=== PATIENT | male | born 1955 | race Caucasian/White ===

== ENCOUNTER 2018-04-05 19:00 | Inpatient (IN) | payer OTHER ==
[~2018-04-05] VITALS: Ht 180.3 cm; Wt 68.5 kg
[~2018-04-05 19:00] MED LIST: ASPI-1182 PO; BUPR75 PO; CLON2 PO; HYDR25TA PO; LISI-661 PO; LORA10TA7 PO; MOME17N NASAL; RISP2TAB76 PO; SIMV5TAB2 PO; VITAD1000 PO
[2018-04-05] MEDS ORDERED: PIPERACILLIN SODIUM/TAZOBACTAM 4.5 GM in DEXTROSE 5%-WATER 100 ML IV ONE (21:45)
[2018-04-05] MEDS ORDERED: VANCOMYCIN HCL 1 GM/D5% WATER 200 ML IV ONE (21:45)
[2018-04-05 22:19] LABS: CALCIUM, TOTAL 8.9 mg/dL (8.8-10.5); CREATININE 3.5 mg/dL (0.60-1.30)
[2018-04-05 22:20] LABS: BASOPHILS % (AUTO) 0.1 % (0.0-2.0); EOSINOPHILS % (AUTO) 0.1 % (1.0-6.0); HEMATOCRIT 39.7 % (41-53); HEMOGLOBIN 13.6 g/dL (13.5-17.5); LYMPHOCYTES # (AUTO) 0.3 K/uL (1.0-4.8); LYMPHOCYTES % (AUTO) 2.1 % (22.0-44.0); MEAN CORPUSCULAR HEMOGLOBIN 31.5 pg (26.0-34.0); MEAN CORPUSCULAR HGB CONC 34.2 G/dL (31.0-37.0); MEAN CORPUSCULAR VOLUME 92 fL (80-100); MONOCYTES # (AUTO) 0.8 K/uL (0.1-1.0); MONOCYTES % (AUTO) 5.5 % (2.0-9.0); NEUTROPHILS # (AUTO) 14.1 K/uL (1.8-7.7); PLATELET COUNT (AUTO) 192 K/uL (150-450); RED BLOOD CELL COUNT(AUTO) 4.32 MIL/uL (4.50-5.90); RED CELL DISTRIBUTION WIDTH 14.1 % (11.5-14.5)
[2018-04-05 22:22] LABS: NEUTROPHILS % (AUTO) 92.2 % (40.0-70.0)
[2018-04-05 22:25] LABS: ALBUMIN 3.2 g/dL (3.4-5.0); TOTAL PROTEIN, SERUM 9.2 g/dL (6.4-8.2)
[2018-04-05 22:28] LABS: LACTIC ACID 1.8 mmol/L (0.4-2.0)
[2018-04-05] MEDS ORDERED: 0.9% SODIUM CHLORIDE 10 ML SYRINGE IVP PRN ×2 (23:00→23:45)
[2018-04-05] MEDS ORDERED: ACETAMINOPHEN 325 MG TABLET PO PRN (23:00)
[2018-04-05] MEDS ORDERED: ONDANSETRON HCL 4 MG/2 ML VIAL IVP PRN ×2 (23:00→23:45)
[2018-04-05] MEDS ORDERED: HYDROCODONE/ACETAMINOPHEN 5-325 MG TABLET PO PRN (23:45)
[2018-04-05] MEDS ORDERED: ZOLPIDEM TARTRATE 5 MG TABLET PO PRN (23:45)
[2018-04-05] MEDS ORDERED: VANCOMYCIN HCL 1 GM/D5% WATER 200 ML IV PRN (23:45)
[2018-04-06] VITALS (8 sets, daily range): BP systolic 78–118; BP diastolic 41–76
[2018-04-06] MEDS ORDERED: RisperiDONE 3 MG TABLET PO SCH
[2018-04-06] MEDS ORDERED: SODIUM CHLORIDE 0.9% 250 ML IV ONE (02:52)
[2018-04-06] MEDS ORDERED: VANCOMYCIN HCL 500 MG in DEXTROSE 5%-WATER 100 ML IV ONE (03:00)
[2018-04-06] MEDS: PIPERACILLIN SODIUM/TAZOBACTAM 2.25 GM in DEXTROSE 5%-WATER 50 ML IV SCH ×4 (04:22→22:01)
[2018-04-06] MEDS ORDERED: PNEUMOCOCCAL VACCINE POLYVALENT 0.5 ML VIAL [PPSV23] IM ONE (05:45)
[2018-04-06 07:35] LABS: BASOPHILS % (AUTO) 0.2 % (0.0-2.0); EOSINOPHILS % (AUTO) 0.1 % (1.0-6.0); HEMATOCRIT 31.6 % (41-53); HEMOGLOBIN 11.1 g/dL (13.5-17.5); LYMPHOCYTES # (AUTO) 0.4 K/uL (1.0-4.8); LYMPHOCYTES % (AUTO) 3.2 % (22.0-44.0); MEAN CORPUSCULAR HEMOGLOBIN 31.9 pg (26.0-34.0); MEAN CORPUSCULAR HGB CONC 35.1 G/dL (31.0-37.0); MEAN CORPUSCULAR VOLUME 91 fL (80-100); MONOCYTES % (AUTO) 8.9 % (2.0-9.0); NEUTROPHILS # (AUTO) 9.6 K/uL (1.8-7.7); PLATELET COUNT (AUTO) 149 K/uL (150-450); RED BLOOD CELL COUNT(AUTO) 3.47 MIL/uL (4.50-5.90); RED CELL DISTRIBUTION WIDTH 13.9 % (11.5-14.5)
[2018-04-06 07:41] LABS: NEUTROPHILS % (AUTO) 87.6 % (40.0-70.0)
[2018-04-06 07:42] LABS: CALCIUM, TOTAL 7.5 mg/dL (8.8-10.5); CREATININE 3.53 mg/dL (0.60-1.30); MAGNESIUM 2.2 mg/dL (1.80-2.40); POTASSIUM 3.8 mmol/L (3.5-5.1)
[2018-04-06] MEDS ORDERED: HYDROCHLOROTHIAZIDE 25 MG TABLET PO SCH (09:00)
[2018-04-06] MEDS ORDERED: PANTOPRAZOLE SODIUM 40 MG DR TABLET PO SCH (09:00)
[2018-04-06] MEDS ORDERED: LISINOPRIL 10 MG TABLET PO SCH (09:00)
[2018-04-06] MEDS ORDERED: ClonazePAM 1 MG TABLET PO SCH (09:00)
[2018-04-06] MEDS ORDERED: LORATADINE 10 MG TABLET PO SCH (09:00)
[2018-04-06] MEDS: PANTOPRAZOLE SODIUM 40 MG/VIAL IVP SCH (09:47)
[2018-04-06] MEDS: MOMETASONE FUROATE 50 MCG/SPRAY 17 GM NASAL SPRAY NASAL SCH (09:47)
[2018-04-06] MEDS: BuPROPion HCL 75 MG TABLET PO SCH ×2 (09:48→20:01)
[2018-04-06] MEDS: ASPIRIN 81 MG EC TABLET PO SCH (09:48)
[2018-04-06] MEDS: DOCUSATE SODIUM 100 MG CAPSULE PO SCH ×2 (09:48→20:01)
[2018-04-06] MEDS ORDERED: SODIUM CHLORIDE 0.9% 1,000 ML IV ONE (10:30)
[2018-04-06 11:14] LABS: CREATININE,URINE RANDOM 124.3 mg/dL (30.0-125.0); PROTEIN,URINE RANDOM 144 mg/dL (0-11.9); SODIUM,URINE RANDOM < 5 mmol/l (20-110)
[2018-04-06 11:20] LABS: CREATINE KINASE, TOTAL 43 U/L (39-308)
[2018-04-06 11:24] LABS: LACTIC ACID 1.8 mmol/L (0.4-2.0)
[2018-04-06] MEDS: RINGERS SOLUTION,LACTATED 1,000 ML IV SCH ×2 (12:26→20:01)
[2018-04-06] MEDS: ClonazePAM 0.5 MG TABLET PO SCH (20:03)
[2018-04-07 02:02] LABS: APPEARANCE,URINE CLOUDY (CLEAR); BILIRUBIN,URINE NEGATIVE (NEGATIVE); GLUCOSE, URINE (UA) NEGATIVE (NEGATIVE); KETONES,URINE NEGATIVE (NEGATIVE); OCCULT BLOOD,URINE MODERATE (NEGATIVE); PROTEIN,URINE SEE CONFIRM (NEGATIVE)
[2018-04-07 02:03] LABS: LEUKOCYTE ESTERASE ,URINE TRACE (NEGATIVE); NITRATE,URINE NEGATIVE (NEGATIVE)
[2018-04-07 02:05] LABS: AMPHET/METH SCREEN,URINE POSITIVE (NEGATIVE); BARBITURATE SCREEN, URINE NEGATIVE (NEGATIVE); BENZODIAZEPINES SCREEN,URINE POSITIVE (NEGATIVE); CANNABINOID SCREEN,URINE NEGATIVE (NEGATIVE); COCAINE SCREEN,URINE NEGATIVE (NEGATIVE); METHADONE SCREEN, URINE NEGATIVE (NEGATIVE); OPIATE SCREEN,URINE POSITIVE (NEGATIVE)
[2018-04-07 02:06] LABS: PHENCYCLIDINE SCREEN,URINE NEGATIVE (NEGATIVE)
[2018-04-07 02:19] LABS: BACTERIA,URINE Rare /HPF (None Seen); SULFOSALICYLIC ACID,URINE 1+ (Negative); URIC ACID CRYSTALS,URINE Few /LPF (None Seen)
[2018-04-07] MEDS: RINGERS SOLUTION,LACTATED 1,000 ML IV SCH ×3 (03:13→22:18)
[2018-04-07] MEDS: PIPERACILLIN SODIUM/TAZOBACTAM 2.25 GM in DEXTROSE 5%-WATER 50 ML IV SCH ×4 (03:14→22:18)
[2018-04-07 04:46] VITALS: BP 110/64
[2018-04-07 06:27] LABS: BASOPHILS % (AUTO) 0.2 % (0.0-2.0); EOSINOPHILS % (AUTO) 0.2 % (1.0-6.0); HEMATOCRIT 34.9 % (41-53); HEMOGLOBIN 11.7 g/dL (13.5-17.5); LYMPHOCYTES # (AUTO) 0.5 K/uL (1.0-4.8); LYMPHOCYTES % (AUTO) 4.4 % (22.0-44.0); MEAN CORPUSCULAR HEMOGLOBIN 30.7 pg (26.0-34.0); MEAN CORPUSCULAR HGB CONC 33.6 G/dL (31.0-37.0); MEAN CORPUSCULAR VOLUME 91 fL (80-100); MONOCYTES % (AUTO) 8.4 % (2.0-9.0); NEUTROPHILS # (AUTO) 10.1 K/uL (1.8-7.7); PLATELET COUNT (AUTO) 172 K/uL (150-450); RED BLOOD CELL COUNT(AUTO) 3.82 MIL/uL (4.50-5.90); RED CELL DISTRIBUTION WIDTH 14.2 % (11.5-14.5)
[2018-04-07 06:34] LABS: NEUTROPHILS % (AUTO) 86.8 % (40.0-70.0)
[2018-04-07 07:09] LABS: CALCIUM, TOTAL 7.9 mg/dL (8.8-10.5); CREATININE 2.39 mg/dL (0.60-1.30); POTASSIUM 3.4 mmol/L (3.5-5.1)
[2018-04-07 07:23] VITALS: BP 129/80
[2018-04-07] MEDS: ASPIRIN 81 MG EC TABLET PO SCH (09:01)
[2018-04-07] MEDS: ClonazePAM 0.5 MG TABLET PO SCH (09:01)
[2018-04-07] MEDS: MOMETASONE FUROATE 50 MCG/SPRAY 17 GM NASAL SPRAY NASAL SCH (09:02)
[2018-04-07] MEDS: BuPROPion HCL 75 MG TABLET PO SCH (09:02)
[2018-04-07] MEDS: PANTOPRAZOLE SODIUM 40 MG/VIAL IVP SCH (09:02)
[2018-04-07] MEDS: DOCUSATE SODIUM 100 MG CAPSULE PO SCH ×2 (09:02→21:00)
[2018-04-07 11:38] VITALS: BP 126/77
[2018-04-07] MEDS ORDERED: RISP3 PO (12:00)
[2018-04-07] MEDS ORDERED: POTASSIUM CHLORIDE 20 MEQ ER TABLET PO ONE (12:00)
[2018-04-07] MEDS ORDERED: SIMV-259 PO (12:00)
[2018-04-07 14:56] VITALS: BP 113/78
[2018-04-07] MEDS: ACETAMINOPHEN 325 MG TABLET PO PRN (15:00)
[2018-04-07] MEDS ORDERED: LORazepam 2 MG/ML VIAL IVP ONE (16:45)
[2018-04-07 19:13] VITALS: BP 108/61
[2018-04-07 23:42] VITALS: BP 104/62
[2018-04-08 04:00] VITALS: BP 123/77
[2018-04-08] MEDS: PIPERACILLIN SODIUM/TAZOBACTAM 2.25 GM in DEXTROSE 5%-WATER 50 ML IV SCH (04:49)
[2018-04-08 06:53] LABS: BASOPHILS % (AUTO) 0.4 % (0.0-2.0); EOSINOPHILS % (AUTO) 0.3 % (1.0-6.0); HEMATOCRIT 33.5 % (41-53); HEMOGLOBIN 11.5 g/dL (13.5-17.5); LYMPHOCYTES # (AUTO) 0.6 K/uL (1.0-4.8); LYMPHOCYTES % (AUTO) 3.6 % (22.0-44.0); MEAN CORPUSCULAR HGB CONC 34.3 G/dL (31.0-37.0); MEAN CORPUSCULAR VOLUME 90 fL (80-100); MONOCYTES # (AUTO) 1.1 K/uL (0.1-1.0); MONOCYTES % (AUTO) 6.6 % (2.0-9.0); NEUTROPHILS # (AUTO) 14.4 K/uL (1.8-7.7); PLATELET COUNT (AUTO) 194 K/uL (150-450); RED BLOOD CELL COUNT(AUTO) 3.71 MIL/uL (4.50-5.90); RED CELL DISTRIBUTION WIDTH 14.3 % (11.5-14.5)
[2018-04-08 06:58] LABS: NEUTROPHILS % (AUTO) 89.1 % (40.0-70.0)
[2018-04-08 07:30] LABS: CREATININE 1.45 mg/dL (0.60-1.30); POTASSIUM 3.3 mmol/L (3.5-5.1); VANCOMYCIN,RANDOM 3.1 mcg/mL (25.0-50.0)
[2018-04-08 07:32] VITALS: BP_SYST 132; BP_SYST 142; BP_DIAS 76; BP_DIAS 81
[2018-04-08] MEDS: PANTOPRAZOLE SODIUM 40 MG/VIAL IVP SCH (08:50)
[2018-04-08] MEDS: ASPIRIN 81 MG EC TABLET PO SCH (08:50)
[2018-04-08] MEDS: MOMETASONE FUROATE 50 MCG/SPRAY 17 GM NASAL SPRAY NASAL SCH (08:50)
[2018-04-08] MEDS: DOCUSATE SODIUM 100 MG CAPSULE PO SCH ×2 (08:50→20:13)
[2018-04-08] MEDS ORDERED: VANCOMYCIN HCL 1 GM/D5% WATER 200 ML IV ONE (09:00)
[2018-04-08] MEDS: PIPERACILLIN/TAZO 3.375 GM/D5W 50 ML IV SCH ×3 (09:30→22:37)
[2018-04-08] MEDS: RINGERS SOLUTION,LACTATED 1,000 ML IV SCH (09:39)
[2018-04-08] MEDS ORDERED: POTASSIUM CHLORIDE 20 MEQ ER TABLET PO ONE ×2 (10:00→10:15)
[2018-04-08] MEDS: HYDROCODONE/ACETAMINOPHEN 5-325 MG TABLET PO PRN ×3 (10:34→22:36)
[2018-04-08 10:43] VITALS: BP 122/70
[2018-04-08] MEDS ORDERED: POTASSIUM CHLORIDE 10 MEQ ER TABLET PO ONE (13:00)
[2018-04-08 15:58] VITALS: BP 139/54
[2018-04-08 17:23] VITALS: BP 116/78
[2018-04-08 19:50] VITALS: BP 112/82
[2018-04-08] MEDS: ClonazePAM 0.5 MG TABLET PO SCH (20:13)
[2018-04-08] MEDS ORDERED: SODIUM CHLORIDE 0.9% 500 ML IV ONE (20:18)
[2018-04-08] MEDS: VANCOMYCIN HCL 750 MG in DEXTROSE 5%-WATER 250 ML IV SCH (20:28)
[2018-04-09] VITALS (7 sets, daily range): BP systolic 121–149; BP diastolic 71–91
[2018-04-09] MEDS: PIPERACILLIN/TAZO 3.375 GM/D5W 50 ML IV SCH ×4 (04:10→21:55)
[2018-04-09] MEDS: HYDROCODONE/ACETAMINOPHEN 5-325 MG TABLET PO PRN ×4 (04:15→19:43)
[2018-04-09 06:37] LABS: BASOPHILS % (AUTO) 0.2 % (0.0-2.0); EOSINOPHILS % (AUTO) 0.5 % (1.0-6.0); HEMATOCRIT 31.2 % (41-53); HEMOGLOBIN 10.8 g/dL (13.5-17.5); LYMPHOCYTES # (AUTO) 0.9 K/uL (1.0-4.8); MEAN CORPUSCULAR HEMOGLOBIN 31.7 pg (26.0-34.0); MEAN CORPUSCULAR HGB CONC 34.7 G/dL (31.0-37.0); MEAN CORPUSCULAR VOLUME 91 fL (80-100); MONOCYTES # (AUTO) 0.9 K/uL (0.1-1.0); MONOCYTES % (AUTO) 5.9 % (2.0-9.0); NEUTROPHILS # (AUTO) 13.5 K/uL (1.8-7.7); PLATELET COUNT (AUTO) 207 K/uL (150-450); RED BLOOD CELL COUNT(AUTO) 3.42 MIL/uL (4.50-5.90); RED CELL DISTRIBUTION WIDTH 14.3 % (11.5-14.5)
[2018-04-09 07:01] LABS: NEUTROPHILS % (AUTO) 87.4 % (40.0-70.0)
[2018-04-09 07:20] LABS: CALCIUM, TOTAL 7.9 mg/dL (8.8-10.5); CREATININE 1.26 mg/dL (0.60-1.30); POTASSIUM 3.3 mmol/L (3.5-5.1)
[2018-04-09] MEDS: ClonazePAM 0.5 MG TABLET PO SCH ×2 (08:35→19:42)
[2018-04-09] MEDS: PANTOPRAZOLE SODIUM 40 MG/VIAL IVP SCH (08:35)
[2018-04-09] MEDS: DOCUSATE SODIUM 100 MG CAPSULE PO SCH ×2 (08:36→19:42)
[2018-04-09] MEDS: ASPIRIN 81 MG EC TABLET PO SCH (08:36)
[2018-04-09] MEDS: MOMETASONE FUROATE 50 MCG/SPRAY 17 GM NASAL SPRAY NASAL SCH (08:36)
[2018-04-09] MEDS: VANCOMYCIN HCL 750 MG in DEXTROSE 5%-WATER 250 ML IV SCH ×2 (09:16→19:43)
[2018-04-09] MEDS ORDERED: POTASSIUM CHLORIDE 20 MEQ ER TABLET PO ONE (10:30)
[2018-04-09] MEDS: ACETAMINOPHEN 325 MG TABLET PO PRN (23:40)
[2018-04-10] MEDS: PIPERACILLIN/TAZO 3.375 GM/D5W 50 ML IV SCH ×4 (04:08→22:45)
[2018-04-10] MEDS: HYDROCODONE/ACETAMINOPHEN 5-325 MG TABLET PO PRN ×4 (04:09→23:53)
[2018-04-10 05:29] VITALS: BP 122/66
[2018-04-10 07:48] VITALS: BP 142/83
[2018-04-10] MEDS: MOMETASONE FUROATE 50 MCG/SPRAY 17 GM NASAL SPRAY NASAL SCH (08:10)
[2018-04-10] MEDS: PANTOPRAZOLE SODIUM 40 MG/VIAL IVP SCH (08:10)
[2018-04-10] MEDS: VANCOMYCIN HCL 750 MG in DEXTROSE 5%-WATER 250 ML IV SCH (08:10)
[2018-04-10] MEDS: ASPIRIN 81 MG EC TABLET PO SCH (08:12)
[2018-04-10] MEDS: ClonazePAM 0.5 MG TABLET PO SCH ×2 (08:12→19:35)
[2018-04-10] MEDS: DOCUSATE SODIUM 100 MG CAPSULE PO SCH ×2 (08:12→19:35)
[2018-04-10 08:15] LABS: ANION GAP 7 mmol/L (8-16); CALCIUM, TOTAL 8.1 mg/dL (8.8-10.5); CARBON DIOXIDE 27 mmol/L (22-29); CHLORIDE 100 mmol/L (98-107); GLOMERULAR FILTR. RATE CALC > 60 mL/min (>60); GLUCOSE,RANDOM 93 mg/dL (70-110); POTASSIUM 3.7 mmol/L (3.5-5.1); SODIUM SERUM 134 mmol/L (136-145); UREA NITROGEN, BLOOD 14 mg/dL (7-18); VANCOMYCIN,RANDOM 10.5 mcg/mL (25.0-50.0)
[2018-04-10 10:21] LABS: BASOPHILS % (AUTO) 1.1 % (0.0-2.0); EOSINOPHILS % (AUTO) 0.8 % (1.0-6.0); HEMATOCRIT 35.5 % (41-53); HEMOGLOBIN 12.1 g/dL (13.5-17.5); MEAN CORPUSCULAR HEMOGLOBIN 31.2 pg (26.0-34.0); MEAN CORPUSCULAR HGB CONC 34.1 G/dL (31.0-37.0); MEAN CORPUSCULAR VOLUME 91 fL (80-100); MONOCYTES # (AUTO) 0.6 K/uL (0.1-1.0); MONOCYTES % (AUTO) 4.6 % (2.0-9.0); NEUTROPHILS # (AUTO) 10.4 K/uL (1.8-7.7); PLATELET COUNT (AUTO) 221 K/uL (150-450); RED BLOOD CELL COUNT(AUTO) 3.89 MIL/uL (4.50-5.90); RED CELL DISTRIBUTION WIDTH 14.2 % (11.5-14.5)
[2018-04-10 10:25] LABS: NEUTROPHILS % (AUTO) 85.5 % (40.0-70.0)
[2018-04-10 11:40] VITALS: BP 134/83
[2018-04-10] MEDS: ACETAMINOPHEN 325 MG TABLET PO PRN (15:35)
[2018-04-10] MEDS: VANCOMYCIN HCL 1.25 GM in DEXTROSE 5%-WATER 250 ML IV SCH (19:37)
[2018-04-10 19:53] VITALS: BP 150/86
[2018-04-10 23:30] VITALS: BP 149/79
[2018-04-11] MEDS: ACETAMINOPHEN 325 MG TABLET PO PRN (02:06)
[2018-04-11 04:33] VITALS: BP 144/80
[2018-04-11] MEDS: HYDROCODONE/ACETAMINOPHEN 5-325 MG TABLET PO PRN ×3 (04:51→20:23)
[2018-04-11] MEDS: PIPERACILLIN/TAZO 3.375 GM/D5W 50 ML IV SCH ×4 (04:51→22:34)
[2018-04-11 06:37] LABS: BASOPHILS % (AUTO) 0.3 % (0.0-2.0); EOSINOPHILS % (AUTO) 0.7 % (1.0-6.0); HEMATOCRIT 32.4 % (41-53); HEMOGLOBIN 11.3 g/dL (13.5-17.5); MEAN CORPUSCULAR HEMOGLOBIN 31.3 pg (26.0-34.0); MEAN CORPUSCULAR HGB CONC 34.8 G/dL (31.0-37.0); MEAN CORPUSCULAR VOLUME 90 fL (80-100); MONOCYTES # (AUTO) 0.6 K/uL (0.1-1.0); MONOCYTES % (AUTO) 4.8 % (2.0-9.0); NEUTROPHILS # (AUTO) 10.6 K/uL (1.8-7.7); PLATELET COUNT (AUTO) 222 K/uL (150-450); RED BLOOD CELL COUNT(AUTO) 3.61 MIL/uL (4.50-5.90)
[2018-04-11 06:44] LABS: ANION GAP 7 mmol/L (8-16); CARBON DIOXIDE 26 mmol/L (22-29); CHLORIDE 100 mmol/L (98-107); CREATININE 0.93 mg/dL (0.60-1.30); GLOMERULAR FILTR. RATE CALC > 60 mL/min (>60); GLUCOSE,RANDOM 91 mg/dL (70-110); POTASSIUM 4.2 mmol/L (3.5-5.1); SODIUM SERUM 133 mmol/L (136-145); UREA NITROGEN, BLOOD 13 mg/dL (7-18)
[2018-04-11 06:50] LABS: NEUTROPHILS % (AUTO) 86.2 % (40.0-70.0)
[2018-04-11 07:48] VITALS: BP 119/87
[2018-04-11] MEDS: VANCOMYCIN HCL 1.25 GM in DEXTROSE 5%-WATER 250 ML IV SCH ×2 (08:53→20:22)
[2018-04-11] MEDS: DOCUSATE SODIUM 100 MG CAPSULE PO SCH ×2 (09:46→20:24)
[2018-04-11] MEDS: ClonazePAM 0.5 MG TABLET PO SCH ×2 (09:46→20:23)
[2018-04-11] MEDS: PANTOPRAZOLE SODIUM 40 MG/VIAL IVP SCH (09:46)
[2018-04-11] MEDS: MULTIVITAMINS WITH MINERALS, THERAPEUTIC TABLET PO SCH (09:46)
[2018-04-11] MEDS: MOMETASONE FUROATE 50 MCG/SPRAY 17 GM NASAL SPRAY NASAL SCH (09:47)
[2018-04-11] MEDS: ASPIRIN 81 MG EC TABLET PO SCH (09:47)
[2018-04-11 11:32] VITALS: BP 138/83
[2018-04-11 12:02] VITALS: BP 145/80
[2018-04-11] MEDS ORDERED: HYDROmorphone 2 MG/ML SYRINGE IVP ONE (12:40)
[2018-04-11 16:40] VITALS: BP 143/79
[2018-04-11 19:30] VITALS: BP 154/82
[2018-04-12] VITALS (7 sets, daily range): BP systolic 148–172; BP diastolic 72–95
[2018-04-12] MEDS: MORPHINE SULFATE 4 MG/ML SYRINGE IVP PRN ×4 (00:17→20:13)
[2018-04-12] MEDS ORDERED: SODIUM CHLORIDE 0.9% 250 ML IV ONE (03:31)
[2018-04-12] MEDS: PIPERACILLIN/TAZO 3.375 GM/D5W 50 ML IV SCH ×4 (03:37→22:46)
[2018-04-12] MEDS: HYDROCODONE/ACETAMINOPHEN 5-325 MG TABLET PO PRN ×3 (03:43→22:46)
[2018-04-12 06:49] LABS: ANION GAP 4 mmol/L (8-16); CARBON DIOXIDE 29 mmol/L (22-29); CHLORIDE 100 mmol/L (98-107); CREATININE 0.92 mg/dL (0.60-1.30); GLOMERULAR FILTR. RATE CALC > 60 mL/min (>60); GLUCOSE,RANDOM 93 mg/dL (70-110); POTASSIUM 4.3 mmol/L (3.5-5.1); SODIUM SERUM 133 mmol/L (136-145); UREA NITROGEN, BLOOD 14 mg/dL (7-18); VANCOMYCIN,RANDOM 15.9 mcg/mL (25.0-50.0)
[2018-04-12] MEDS: VANCOMYCIN HCL 1.25 GM in DEXTROSE 5%-WATER 250 ML IV SCH (08:30)
[2018-04-12] MEDS: ClonazePAM 0.5 MG TABLET PO SCH ×2 (08:31→20:13)
[2018-04-12] MEDS: MULTIVITAMINS WITH MINERALS, THERAPEUTIC TABLET PO SCH (08:31)
[2018-04-12] MEDS: MOMETASONE FUROATE 50 MCG/SPRAY 17 GM NASAL SPRAY NASAL SCH (08:31)
[2018-04-12] MEDS: ASPIRIN 81 MG EC TABLET PO SCH (08:31)
[2018-04-12] MEDS: PANTOPRAZOLE SODIUM 40 MG/VIAL IVP SCH (08:31)
[2018-04-12] MEDS: DOCUSATE SODIUM 100 MG CAPSULE PO SCH ×2 (08:31→20:13)
[2018-04-12] MEDS: VANCOMYCIN HCL 1.5 GM in DEXTROSE 5%-WATER 250 ML IV SCH (20:13)
[2018-04-12] MEDS ORDERED: SODIUM CHLORIDE 0.9% 500 ML IV ONE (20:25)
[2018-04-13] MEDS: PIPERACILLIN/TAZO 3.375 GM/D5W 50 ML IV SCH ×4 (03:32→20:27)
[2018-04-13 04:09] VITALS: BP 156/96
[2018-04-13] MEDS: HYDROCODONE/ACETAMINOPHEN 5-325 MG TABLET PO PRN ×3 (05:08→22:22)
[2018-04-13 07:06] LABS: ANION GAP 6 mmol/L (8-16); CALCIUM, TOTAL 8.3 mg/dL (8.8-10.5); CARBON DIOXIDE 28 mmol/L (22-29); CHLORIDE 100 mmol/L (98-107); CREATININE 1.03 mg/dL (0.60-1.30); GLOMERULAR FILTR. RATE CALC > 60 mL/min (>60); GLUCOSE,RANDOM 92 mg/dL (70-110); POTASSIUM 3.8 mmol/L (3.5-5.1); SODIUM SERUM 134 mmol/L (136-145); UREA NITROGEN, BLOOD 18 mg/dL (7-18)
[2018-04-13 08:36] VITALS: BP 143/82
[2018-04-13] MEDS: PANTOPRAZOLE SODIUM 40 MG/VIAL IVP SCH (08:36)
[2018-04-13] MEDS: DOCUSATE SODIUM 100 MG CAPSULE PO SCH ×2 (08:40→21:00)
[2018-04-13] MEDS: MORPHINE SULFATE 4 MG/ML SYRINGE IVP PRN ×4 (08:40→23:31)
[2018-04-13] MEDS: ClonazePAM 0.5 MG TABLET PO SCH ×2 (08:40→20:59)
[2018-04-13] MEDS: ASPIRIN 81 MG EC TABLET PO SCH (08:41)
[2018-04-13] MEDS: VANCOMYCIN HCL 1.5 GM in DEXTROSE 5%-WATER 250 ML IV SCH ×2 (08:46→20:59)
[2018-04-13] MEDS: ACETAMINOPHEN 325 MG TABLET PO PRN (08:49)
[2018-04-13] MEDS: MOMETASONE FUROATE 50 MCG/SPRAY 17 GM NASAL SPRAY NASAL SCH (08:53)
[2018-04-13] MEDS: MULTIVITAMINS WITH MINERALS, THERAPEUTIC TABLET PO SCH (08:54)
[2018-04-13 12:00] VITALS: BP 157/88
[2018-04-13 16:21] VITALS: BP 140/88
[2018-04-13 19:51] VITALS: BP 138/88
[2018-04-13 23:38] VITALS: BP 149/87
[2018-04-14] VITALS (7 sets, daily range): BP systolic 134–176; BP diastolic 66–107
[2018-04-14] MEDS: PIPERACILLIN/TAZO 3.375 GM/D5W 50 ML IV SCH ×3 (01:39→18:00)
[2018-04-14] MEDS: MORPHINE SULFATE 4 MG/ML SYRINGE IVP PRN ×4 (03:06→22:59)
[2018-04-14 07:21] LABS: ANION GAP 4 mmol/L (8-16); CALCIUM, TOTAL 8.3 mg/dL (8.8-10.5); CARBON DIOXIDE 29 mmol/L (22-29); CHLORIDE 102 mmol/L (98-107); CREATININE 1.14 mg/dL (0.60-1.30); GLOMERULAR FILTR. RATE CALC > 60 mL/min (>60); GLUCOSE,RANDOM 96 mg/dL (70-110); POTASSIUM 4.5 mmol/L (3.5-5.1); SODIUM SERUM 135 mmol/L (136-145); UREA NITROGEN, BLOOD 20 mg/dL (7-18); VANCOMYCIN,RANDOM 24.2 mcg/mL (25.0-50.0)
[2018-04-14] MEDS: VANCOMYCIN HCL 1.5 GM in DEXTROSE 5%-WATER 250 ML IV SCH (08:20)
[2018-04-14] MEDS: HYDROCODONE/ACETAMINOPHEN 5-325 MG TABLET PO PRN ×2 (08:31→15:16)
[2018-04-14] MEDS: ClonazePAM 0.5 MG TABLET PO SCH ×2 (08:35→21:44)
[2018-04-14] MEDS: MULTIVITAMINS WITH MINERALS, THERAPEUTIC TABLET PO SCH (08:35)
[2018-04-14] MEDS: MOMETASONE FUROATE 50 MCG/SPRAY 17 GM NASAL SPRAY NASAL SCH (08:35)
[2018-04-14] MEDS: PANTOPRAZOLE SODIUM 40 MG/VIAL IVP SCH (08:36)
[2018-04-14] MEDS: ASPIRIN 81 MG EC TABLET PO SCH (08:36)
[2018-04-14] MEDS: DOCUSATE SODIUM 100 MG CAPSULE PO SCH ×2 (08:36→21:00)
[2018-04-14] MEDS: VANCOMYCIN HCL 1 GM/D5% WATER 200 ML IV SCH (22:00)
[2018-04-15] MEDS: PIPERACILLIN/TAZO 3.375 GM/D5W 50 ML IV SCH ×4 (01:07→17:24)
[2018-04-15] MEDS: HYDROCODONE/ACETAMINOPHEN 5-325 MG TABLET PO PRN ×3 (01:14→17:25)
[2018-04-15] MEDS: MORPHINE SULFATE 4 MG/ML SYRINGE IVP PRN ×4 (02:09→15:30)
[2018-04-15 04:25] VITALS: BP 153/101
[2018-04-15 05:36] LABS: ANION GAP 4 mmol/L (8-16); CALCIUM, TOTAL 8.4 mg/dL (8.8-10.5); CARBON DIOXIDE 29 mmol/L (22-29); CHLORIDE 101 mmol/L (98-107); CREATININE 1.02 mg/dL (0.60-1.30); GLOMERULAR FILTR. RATE CALC > 60 mL/min (>60); GLUCOSE,RANDOM 101 mg/dL (70-110); SODIUM SERUM 134 mmol/L (136-145); UREA NITROGEN, BLOOD 18 mg/dL (7-18)
[2018-04-15 08:14] VITALS: BP 148/84
[2018-04-15] MEDS: VANCOMYCIN HCL 1 GM/D5% WATER 200 ML IV SCH (08:41)
[2018-04-15] MEDS: ASPIRIN 81 MG EC TABLET PO SCH (10:10)
[2018-04-15] MEDS: PANTOPRAZOLE SODIUM 40 MG/VIAL IVP SCH (10:10)
[2018-04-15] MEDS: DOCUSATE SODIUM 100 MG CAPSULE PO SCH (10:10)
[2018-04-15] MEDS: MULTIVITAMINS WITH MINERALS, THERAPEUTIC TABLET PO SCH (10:11)
[2018-04-15] MEDS: ClonazePAM 0.5 MG TABLET PO SCH (10:11)
[2018-04-15] MEDS: MOMETASONE FUROATE 50 MCG/SPRAY 17 GM NASAL SPRAY NASAL SCH (11:13)
[2018-04-15 12:24] VITALS: BP 158/98
[2018-04-15 12:49] VITALS: BP 145/89
[2018-04-15 15:25] VITALS: BP_SYST 143; BP_SYST 78; BP_DIAS 76
[2018-04-15] MEDS ORDERED: CLON.5 PO (16:37)
[2018-04-15] MEDS ORDERED: DSS100 PO (16:37)
[2018-04-15] MEDS ORDERED: MULT-1119 PO (16:38)
[2018-04-15] MEDS ORDERED: VANC1PLA9 IVPB (16:40)
[2018-04-15] MEDS ORDERED: ACET650S14 PR (16:42)
[2018-04-15] MEDS ORDERED: HYDR-309 PO (16:44)
[2018-04-15] MEDS ORDERED: LEVO500 PO (16:45)
== END 2018-04-15 18:05 | DRG 720 ==
LOC: EMS 19:01 → 5S 23:00 → 6N 04-08 17:48
PROVIDERS: ADMIT Internal Medicine; ATTEND Internal Medicine
DX: A41.9 Sepsis, unspecified organism (principal); N17.9 Acute kidney failure, unspecified; I95.9 Hypotension, unspecified; D69.6 Thrombocytopenia, unspecified; E87.1 Hypo-osmolality and hyponatremia; E83.51 Hypocalcemia; F20.9 Schizophrenia, unspecified; L03.113 Cellulitis of right upper limb; D64.9 Anemia, unspecified; E78.5 Hyperlipidemia, unspecified; F17.210 Nicotine dependence, cigarettes, uncomplicated; G40.909 Epilepsy, unspecified, not intractable, without status epilepticus; R80.9 Proteinuria, unspecified; F19.10 Other psychoactive substance abuse, uncomplicated; Z79.82 Long term (current) use of aspirin; Z79.899 Other long term (current) drug therapy; Z86.73 Personal history of transient ischemic attack (TIA), and cerebral infarction without residual deficits
CPT/HCPCS: 73221; 76770; 82570; 83605; 83735; 83874; 84156; 84300; 87040; 87070; 87205; 93970; 96365; 99285; C9113; G0480; J1170; J2060; J2270; J2543; J3370; J7030; J7040; J7050; J7060; J7120

== ENCOUNTER 2020-06-07 15:51 | Emergency (ER) | payer MEDICARE, OTHER ==
[~2020-06-07] VITALS: Ht 180.3 cm; Wt 68.2 kg
[~2020-06-07 15:51] MED LIST changes: +ACET650S14 PR; +ASPI-1111 PO; -ASPI-1182 PO; -BUPR75 PO; +CLON.5 PO; -CLON2 PO; +HYDR-309 PO; -HYDR25TA PO; +LEVO-72 PO; -LISI-661 PO; -LORA10TA7 PO; +MULT-1119 PO; -RISP2TAB76 PO; -SIMV5TAB2 PO; +VANC1PLA9 IVPB; -VITAD1000 PO
[2020-06-07 16:01] VITALS: BP 153/93
[2020-06-07] MEDS ORDERED: BUPR75 PO (16:01)
[2020-06-07] MEDS ORDERED: TEMA7.5C17 PO (16:01)
[2020-06-07] MEDS ORDERED: BENZ0.5T44 PO (16:01)
[2020-06-07] MEDS ORDERED: RisperiDONE 1 MG TABLET PO ONE (17:00)
[2020-06-07] MEDS ORDERED: RISP1TAB27 PO (17:00)
[2020-06-07] MEDS ORDERED: ClonazePAM 0.5 MG TABLET PO ONE (17:00)
== END 2020-06-07 17:40 | disposition home or self-care (01) ==
LOC: EMS 15:52
DX: F20.0 Paranoid schizophrenia (principal); F41.9 Anxiety disorder, unspecified; F32.9 Major depressive disorder, single episode, unspecified; Z59.0 Homelessness

== ENCOUNTER 2021-02-12 15:17 | Emergency (ER) | payer MEDICARE, OTHER ==
[~2021-02-12] VITALS: Ht 180.3 cm; Wt 86.4 kg
[~2021-02-12 15:17] MED LIST changes: -ACET650S14 PR; -ASPI-1111 PO; +BENZ0.5T44 PO; +BUPR75 PO; +CLON-592 PO; -CLON.5 PO; -HYDR-309 PO; -LEVO-72 PO; -MULT-1119 PO; +RISP1TAB48 PO; -VANC1PLA9 IVPB
[2021-02-12 18:15] VITALS: BP 144/94
== END 2021-02-12 19:02 | disposition home or self-care (01) ==
LOC: EMS 15:17
DX: F20.0 Paranoid schizophrenia (principal)
CPT/HCPCS: 99283; Z7502

== ENCOUNTER 2023-12-01 18:50 | Emergency (ER) | payer MEDICARE, OTHER ==
[~2023-12-01] VITALS: Ht 180.3 cm; Wt 75.0 kg
[~2023-12-01 18:50] MED LIST changes: -BENZ0.5T44 PO; +BENZ0.5T6 PO; +BUPR-344 PO; -BUPR75 PO
[2023-12-02] VITALS: BP 134/85; PULSE 89; RESP 18; TEMP 98.3
[2023-12-02] MEDS ORDERED: CLON-592 PO (00:24)
[2023-12-02] MEDS ORDERED: ClonazePAM 1 MG TABLET PO ONE (00:30)
[2023-12-02] MEDS ORDERED: ClonazePAM 0.5 MG TABLET PO ONE (00:45)
== END 2023-12-02 00:50 | disposition home or self-care (01) ==
LOC: EMS 18:57
DX: F41.9 Anxiety disorder, unspecified (principal); F32.A Depression, unspecified; Z76.0 Encounter for issue of repeat prescription
CPT/HCPCS: 99283